=== PATIENT | male | born 1990 | race Caucasian/White ===

== ENCOUNTER 2025-02-17 19:57 | Emergency (ER) | payer MEDICAID ==
[~2025-02-17] VITALS: Ht 180.3 cm; Wt 77.1 kg
[2025-02-17 20:20] VITALS: BP 130/60; TEMP 98.7; O2SAT 98
[2025-02-17] MEDS ORDERED: CEPH-570 PO (20:39)
[2025-02-17] MEDS ORDERED: SULF1TAB48 PO (20:39)
== END 2025-02-17 21:02 | disposition home or self-care (01) ==
LOC: EDSEX 20:07 → ER 20:07
DX: A46 Erysipelas (principal)